=== PATIENT | male | born 1995 | race Caucasian/White ===

== ENCOUNTER 2017-02-14 18:47 | Emergency (ER) | payer MEDICAID ==
[~2017-02-14] VITALS: Ht 165.1 cm; Wt 56.0 kg
[2017-02-14 22:29] VITALS: BP 122/65
== END 2017-02-14 22:29 | disposition home or self-care (01) ==
LOC: ED 18:47
DX: Z20.828 Contact with and (suspected) exposure to other viral communicable diseases (principal); F41.9 Anxiety disorder, unspecified